=== PATIENT | female | born 1960 | race African-American/Black ===

== ENCOUNTER → 2017-05-13 | Outpatient (CLI) | payer BC | LOC: RAD 01:32 | DX: Z12.31 Encounter for screening mammogram for malignant neoplasm of breast (principal) ==

== ENCOUNTER → 2018-05-20 | Outpatient (CLI) | payer BC | LOC: BC 05-18 02:14 | DX: Z12.31 Encounter for screening mammogram for malignant neoplasm of breast (principal) ==

== ENCOUNTER → 2018-05-22 | Outpatient (CLI) | payer BC | LOC: RAD 00:51 | DX: N63.20 Unspecified lump in the left breast, unspecified quadrant (principal); R92.8 Other abnormal and inconclusive findings on diagnostic imaging of breast ==

== ENCOUNTER → 2019-05-31 | Outpatient (CLI) | payer BC | LOC: RAD 03:43 | DX: Z12.31 Encounter for screening mammogram for malignant neoplasm of breast (principal) ==

== ENCOUNTER → 2020-06-26 | Outpatient (CLI) | payer BC | LOC: RAD 08:05 | PROVIDERS: ATTEND Family Medicine | DX: Z12.31 Encounter for screening mammogram for malignant neoplasm of breast (principal) ==

== ENCOUNTER → 2021-06-29 | Outpatient (CLI) | payer BC | LOC: BC 11:15 → PAIN 14:34 | DX: Z12.31 Encounter for screening mammogram for malignant neoplasm of breast (principal) ==